=== PATIENT | male | born 1985 | race Caucasian/White ===

== ENCOUNTER 2017-06-13 15:07 | Emergency (ER) | payer OTHER ==
[~2017-06-13] VITALS: Ht 190.5 cm; Wt 117.9 kg
[~2017-06-13 15:07] MED LIST: ATIVAN1 MG PO; AUGMENTIN 875875 MG PO; BUTALB-APAP-CA1 EACH PO; CELEXA20 MG PO; IBUPROFEN 600600 M1 PO; MEDROLDOSEPACK PO; NAPROSYN500 MG PO; NOHOMEMEDICATIONS; NORCO 5-325 TA1 EACH PO; PRED-G 1% EYE DR5 ML OPHTHALMIC; TAMSULOSIN HCL0.4 MG PO; TRAMADOL 50 MG50 MG PO; TRAZODONE HCL50 MG PO; ZOFRAN ODT4 MG PO; ZOFRAN4 MG PO
[2017-06-13 15:47] LABS: URINE BILIRUBIN NEGATIVE (Negative); URINE BLOOD NEGATIVE (Negative); URINE COLOR YELLOW; URINE GLUCOSE-RANDOM* NEGATIVE (Negative); URINE KETONES NEGATIVE (Negative); URINE NITRITE NEGATIVE (Negative); URINE PROTEIN (DIPSTICK) NEGATIVE (Negative); URINE UROBILINOGEN 0.2 E.U./dl (0.2-1.0)
[2017-06-13 15:57] LABS: BACTERIA 1-9 Few /HPF (None Seen); CASTS None Seen /LPF (None Seen); CRYSTALS None Seen /LPF (None Seen); SQUAMOUS None Seen /LPF (0-3); URINE RBC None Seen /HPF (0-2); URINE WBC 0-5 Rare /HPF (0-5)
[2017-06-13 16:54] LABS: ABSOLUTE NEUTROPHILS 6.5 thou/uL (1.4-8.2); BASOPHILS 0.7 % (0.0-2.0); EOSINOPHILS 4.6 % (0.0-3.0); HEMATOCRIT 46.8 % (42.0-52.0); HEMOGLOBIN 15.8 gm/dL (14.0-18.0); LYMPHOCYTES 32.6 % (24.0-44.0); MANUAL DIFF NO; MCH 30.4 pg (26.0-34.0); MCHC 33.7 g/dL (28.0-37.0); MCV 90.2 fL (80.0-100.0); MONOCYTES 4.7 % (1.0-8.0); PLATELET COUNT 231 thou/uL (150-400); POLYS 57.4 % (36.0-66.0); RBC 5.19 mil/uL (4.50-6.00); WBC 11.4 thou/uL (4.0-11.0)
[2017-06-13 17:01] LABS: CALCIUM 9.1 mg/dL (8.5-10.1); CREATININE 1.2 mg/dL (0.7-1.3); POTASSIUM 3.7 mmol/L (3.5-5.1)
[2017-06-13 17:07] LABS: ALBUMIN 3.7 g/dL (3.4-5.0); TOTAL BILIRUBIN 0.3 mg/dL (<0.1-1.0); TOTAL PROTEIN 7.2 g/dL (6.4-8.2)
[2017-06-13] MEDS ORDERED: NORCO 5-325 TA1 EACH PO (17:41)
[2017-06-13] MEDS ORDERED: KEFLEX500 MG PO (17:48)
[2017-06-13] MEDS ORDERED: ONDANSETRON HCL4 M2 PO (17:48)
[2017-06-13] MEDS ORDERED: FLOMAX0.4 MG PO (17:48)
[2017-06-13 18:07] VITALS: BP 130/72
== END 2017-06-13 18:07 | disposition home or self-care (01) ==
LOC: ER 15:07
PROVIDERS: Physician Assistant
DX: N20.0 Calculus of kidney (principal); N39.0 Urinary tract infection, site not specified; F32.9 Major depressive disorder, single episode, unspecified; F43.10 Post-traumatic stress disorder, unspecified; F17.210 Nicotine dependence, cigarettes, uncomplicated; F10.99 Alcohol use, unspecified with unspecified alcohol-induced disorder

== ENCOUNTER 2017-06-16 13:42 | Emergency (ER) | payer OTHER ==
[~2017-06-16] VITALS: Ht 190.5 cm; Wt 127.0 kg
[~2017-06-16 13:42] MED LIST changes: +FLOMAX0.4 MG PO; +KEFLEX500 MG PO; +ONDANSETRON HCL4 M2 PO
[2017-06-16 14:21] LABS: URINE BILIRUBIN 1+ (Negative); URINE BLOOD 3+ (Negative); URINE COLOR RED; URINE GLUCOSE-RANDOM* NEGATIVE (Negative); URINE KETONES NEGATIVE (Negative); URINE NITRITE NEGATIVE (Negative); URINE PROTEIN (DIPSTICK) 2+ (Negative); URINE SPECIFIC GRAVITY >= 1.030 (1.003-1.035); URINE UROBILINOGEN 0.2 E.U./dl (0.2-1.0)
[2017-06-16 14:30] LABS: ABSOLUTE NEUTROPHILS 5.2 thou/uL (1.4-8.2); BASOPHILS 1.2 % (0.0-2.0); EOSINOPHILS 5.5 % (0.0-3.0); HEMATOCRIT 44.1 % (42.0-52.0); HEMOGLOBIN 15.4 gm/dL (14.0-18.0); LYMPHOCYTES 36.5 % (24.0-44.0); MCH 31.2 pg (26.0-34.0); MCHC 34.8 g/dL (28.0-37.0); MCV 89.7 fL (80.0-100.0); MONOCYTES 3.7 % (1.0-8.0); PLATELET COUNT 236 thou/uL (150-400); POLYS 53.1 % (36.0-66.0); RBC 4.92 mil/uL (4.50-6.00); RDW 14.2 % (10.5-14.5); WBC 9.7 thou/uL (4.0-11.0)
[2017-06-16 14:35] LABS: MANUAL DIFF NO
[2017-06-16 14:41] LABS: CREATININE 1.2 mg/dL (0.7-1.3); POTASSIUM 4.1 mmol/L (3.5-5.1)
[2017-06-16 14:47] LABS: CASTS None Seen /LPF (None Seen); CRYSTALS None Seen /LPF (None Seen); SQUAMOUS 0-3 Few /LPF (0-3); URINE RBC >20 Many /HPF (0-2)
[2017-06-16 14:51] LABS: URINE WBC 0-5 Rare /HPF (0-5)
[2017-06-16] MEDS ORDERED: PHENERGAN 25 MG25 M1 PO (16:24)
[2017-06-16 16:40] VITALS: BP 136/91
== END 2017-06-16 16:40 | disposition home or self-care (01) ==
LOC: ER 13:42
PROVIDERS: Physician Assistant
DX: R10.9 Unspecified abdominal pain (principal); R11.0 Nausea; F32.9 Major depressive disorder, single episode, unspecified; F17.210 Nicotine dependence, cigarettes, uncomplicated; Z87.442 Personal history of urinary calculi; Z88.5 Allergy status to narcotic agent